=== PATIENT | female | born 2000 | race Two or more races ===

== ENCOUNTER 2021-03-06 08:09 | Day surgery (SDC) | payer OTHER | END 2021-03-06 12:50 | disposition home or self-care (01) | LOC: AMB-ENDOS 08:09 | PROVIDERS: ATTEND Colon & Rectal Surgery | DX: D13.1 Benign neoplasm of stomach (principal); K44.9 Diaphragmatic hernia without obstruction or gangrene; K64.0 First degree hemorrhoids; Z20.822 Contact with and (suspected) exposure to COVID-19 ==